=== PATIENT | male | born 1990 | race Caucasian/White ===

== ENCOUNTER 2017-03-05 08:05 | Observation (INO) | payer MEDICAID ==
[~2017-03-05] VITALS: Ht 185.4 cm; Wt 106.6 kg
[~2017-03-05 08:05] MED LIST: DICY20TA66 PO; NOR5T PO; OMEP20CA5 OR; SUCR1TAB36 PO
[2017-03-05 08:38] LABS: Basophils # (auto) 0 uL; Eosinophils # (auto) 0.1 uL; Eosinophils % (auto) 0.8 % (0.0-7.0); Hematocrit 46.8 % (41.0-53.0); Hemoglobin 15.8 g/dL (13.5-17.5); Lymphocytes # (auto) 1.1 uL; Lymphocytes % (auto) 9.2 % (10.0-50.0); Mean Corpuscular Hemoglobin 30.2 pg (28.0-32.0); Mean Corpuscular Hgb Conc. 33.8 g/dL (32.0-36.0); Mean Corpuscular Volume 89.5 fL (80.0-100.0); Mean Platelet Volume 7.6 fL (7.4-10.4); Monocytes # (auto) 0.7 uL; Monocytes % (auto) 6.3 % (0.0-12.0); Neutrophils # (auto) 9.8 uL; Neutrophils % (auto) 83.7 % (37.0-80.0); Platelet Count (auto) 227 10^3/uL (140-450); White Blood Cell 11.7 10^3/uL (4.4-10.8)
[2017-03-05 09:25] LABS: BUN/Creatinine Ratio 16.3; Bilirubin, Total 0.9 mg/dL (0.2-1.0); Calcium 9.2 mg/dL (8.5-10.1); Potassium 3.9 mmol/L (3.5-5.1); Total Protein 7.6 g/dL (6.4-8.2)
[2017-03-05] MEDS ORDERED: SODIUM CHLORIDE 0.9% 1,000 ML IV ONE (09:51)
[2017-03-05] MEDS ORDERED: METOCLOPRAMIDE HCL 5MG/ml INJ 2ml VIAL IV ONE (10:00)
[2017-03-05] MEDS ORDERED: NALBUPHINE HCL 10 MG/1ml INJECTION IV ONE (10:00)
[2017-03-05 12:27] LABS: Urine Bilirubin Negative (Negative); Urine Blood Negative /uL (Negative); Urine Color Yellow (Yellow); Urine Glucose Normal (Normal); Urine Mucus FEW (None Seen); Urine Nitrite Negative (Negative); Urine RBC 11 /hpf (0 - 3); Urine Squamous Epithelial Cell FEW /hpf (<5); Urine Urobilinogen Normal (Negative)
[2017-03-05 12:28] LABS: Urine Ketone 2+ (Negative)
[2017-03-05 14:08] VITALS: BP 132/73
== END 2017-03-05 15:25 | disposition home or self-care (01) | DRG 249 ==
LOC: ER 08:05 → OVERFLOW 09:53 → ER 15:25
PROVIDERS: ADMIT Emergency Medicine; ATTEND Emergency Medicine
DX: R11.2 Nausea with vomiting, unspecified (principal); E86.0 Dehydration; R10.13 Epigastric pain
CPT/HCPCS: 36415; 80053; 81001; 83690; 83735; 84443; 85025; 96361; 96374; 96375; 99285; G0378; J2300; J2765; J7030

== ENCOUNTER 2017-08-11 19:59 | Emergency (ER) | payer MEDICAID ==
[~2017-08-11] VITALS: Ht 177.8 cm; Wt 95.3 kg
[~2017-08-11 19:59] MED LIST changes: +HYDR-4683 PO; -NOR5T PO; -OMEP20CA5 OR; +OMEP20CA74 OR
[2017-08-11] MEDS ORDERED: PROMETHAZINE HCL 25 MG/ML 1ML IV ONE (21:15)
[2017-08-12] MEDS ORDERED: SODIUM CHLORIDE 0.9% 1,000 ML IV ONE ×2 (00:28→00:30)
[2017-08-12] MEDS ORDERED: ONDANSETRON HCL 4 MG/2 ML VIAL IV ONE ×3 (00:30→04:00)
[2017-08-12] MEDS ORDERED: HYDROmorphone HCL 2 MG/ML VL IV ONE ×2 (00:30)
[2017-08-12 01:19] LABS: Basophils # (auto) 0.1 uL; Basophils % (auto) 0.5 % (0.0-2.0); Eosinophils # (auto) 0 uL; Eosinophils % (auto) 0.1 % (0.0-7.0); Hematocrit 46.2 % (41.0-53.0); Hemoglobin 15.8 g/dL (13.5-17.5); Lymphocytes % (auto) 5.3 % (10.0-50.0); Mean Corpuscular Hemoglobin 31.2 pg (28.0-32.0); Mean Corpuscular Hgb Conc. 34.2 g/dL (32.0-36.0); Mean Corpuscular Volume 91.3 fL (80.0-100.0); Mean Platelet Volume 7.8 fL (6.9-10.8); Monocytes # (auto) 0.8 uL; Monocytes % (auto) 4.2 % (0.0-12.0); Neutrophils # (auto) 16.9 uL; Neutrophils % (auto) 89.9 % (37.0-80.0); Platelet Count (auto) 217 10^3/uL (140-450); Red Cell Distribution Width 13.1 % (11.8-14.3); White Blood Cell 18.8 10^3/uL (4.4-10.8)
[2017-08-12 01:25] LABS: INR 1.03 (0.9-1.15); Partial Thromboplastin Time 24.3 sec (22.64-33.71); Prothrombin Time 11.2 sec (9.37-12.3)
[2017-08-12 01:29] LABS: Albumin 3.8 g/dL (3.4-5.0); BUN/Creatinine Ratio 15.2; Calcium 8.6 mg/dL (8.5-10.1); Potassium 3.8 mmol/L (3.5-5.1)
[2017-08-12 01:31] LABS: Lactic Acid w/Reflex 2.6 mmol/L (0.4-2.0)
[2017-08-12 01:32] LABS: Bilirubin, Total 1.7 mg/dL (0.2-1.0); Total Protein 7.2 g/dL (6.4-8.2)
[2017-08-12 02:04] LABS: REFLEX LACTIC ACID YES OR NO YES
[2017-08-12] MEDS ORDERED: cefTRIAXone 1GM/50ML D5W 50 ML IV ONE (03:30)
[2017-08-12 05:27] VITALS: BP 126/82
== END 2017-08-12 06:26 | disposition home or self-care (01) ==
LOC: EDBD 19:59 → EDSEX 19:59 → ER 20:09
DX: K52.9 Noninfective gastroenteritis and colitis, unspecified (principal); D72.829 Elevated white blood cell count, unspecified; F17.210 Nicotine dependence, cigarettes, uncomplicated; Z87.442 Personal history of urinary calculi
CPT/HCPCS: 36415; 74176; 80053; 83605; 83690; 85025; 85610; 85730; 96361; 96365; 96375; 96376; 99285; J0696; J1170; J2405; J2550; J7030

== ENCOUNTER 2017-10-26 15:37 | Emergency (ER) | payer MEDICAID ==
[~2017-10-26] VITALS: Ht 185.4 cm; Wt 108.9 kg
[~2017-10-26 15:37] MED LIST changes: -HYDR-4683 PO
[2017-10-26] MEDS ORDERED: METOCLOPRAMIDE HCL 5MG/ml INJ 2ml VIAL ONE (15:50)
[2017-10-26] MEDS ORDERED: KETOROLAC TROMETH 30 MG/ML 1ML VIAL ONE (15:50)
[2017-10-26] MEDS ORDERED: KETOROLAC TROMETH 30 MG/ML 1ML VIAL IV ONE (16:00)
[2017-10-26] MEDS ORDERED: METOCLOPRAMIDE HCL 5MG/ml INJ 2ml VIAL IV ONE (16:00)
[2017-10-26] MEDS ORDERED: SODIUM CHLORIDE 0.9% 1,000 ML IVB ONE (16:37)
[2017-10-26 16:58] LABS: Basophils # (auto) 0 uL; Basophils % (auto) 0.5 % (0.0-2.0); Eosinophils # (auto) 0 uL; Eosinophils % (auto) 0.4 % (0.0-7.0); Hemoglobin 15.3 g/dL (13.5-17.5); Lymphocytes # (auto) 0.9 uL; Lymphocytes % (auto) 11.1 % (10.0-50.0); Mean Corpuscular Hgb Conc. 34.1 g/dL (32.0-36.0); Mean Platelet Volume 7.4 fL (6.9-10.8); Monocytes # (auto) 0.8 uL; Monocytes % (auto) 9.3 % (0.0-12.0); Neutrophils # (auto) 6.7 uL; Neutrophils % (auto) 78.7 % (37.0-80.0); Platelet Count (auto) 258 10^3/uL (140-450); Red Cell Distribution Width 13.2 % (11.8-14.3); White Blood Cell 8.5 10^3/uL (4.4-10.8)
[2017-10-26] MEDS ORDERED: NALBUPHINE HCL 10 MG/1ml INJECTION IV ONE (17:00)
[2017-10-26] MEDS ORDERED: PROMETHAZINE HCL 25 MG/ML 1ML IV ONE (17:00)
[2017-10-26 18:00] LABS: Potassium 3.4 mmol/L (3.5-5.1)
[2017-10-26 18:04] LABS: BUN/Creatinine Ratio 15.1; Calcium 8.8 mg/dL (8.5-10.1)
[2017-10-26 18:05] LABS: Albumin 3.6 g/dL (3.4-5.0); Magnesium 1.7 mg/dL (1.6-2.6); Total Protein 7.4 g/dL (6.4-8.2)
[2017-10-26 18:30] VITALS: BP 134/76
[2017-10-26] MEDS ORDERED: POTASSIUM CHL 10% (20 MEQ/15ML) 15ml ORAL SOLN PO ONE (18:30)
[2017-10-26 19:03] LABS: Urine Blood TRACE /uL (Negative); Urine Color Yellow (Yellow); Urine Glucose Normal (Normal); Urine Ketone 4+ (Negative); Urine Mucus MANY (None Seen); Urine Nitrite Negative (Negative); Urine RBC 1 /hpf (0 - 3)
[2017-10-26 19:11] LABS: Urine Bilirubin POSITIVE (Negative)
[2017-10-26] MEDS ORDERED: ONDANSETRON HCL 4 MG/2 ML VIAL ONE (19:38)
[2017-10-26] MEDS ORDERED: ONDANSETRON HCL 4 MG/2 ML VIAL IV ONE (19:45)
== END 2017-10-27 07:26 | disposition home or self-care (01) ==
LOC: EDUNIT# 15:37 → EDBD 15:37 → ER 15:37
DX: N23 Unspecified renal colic (principal); R11.2 Nausea with vomiting, unspecified; G89.29 Other chronic pain; M54.5 Low back pain; F17.210 Nicotine dependence, cigarettes, uncomplicated; Z87.11 Personal history of peptic ulcer disease; Z87.442 Personal history of urinary calculi; Z88.6 Allergy status to analgesic agent
CPT/HCPCS: 36415; 74176; 80053; 81001; 83690; 83735; 85025; 96361; 96374; 96375; 99285; J1885; J2300; J2405; J2550; J2765; J7030

== ENCOUNTER 2017-10-27 19:18 | Emergency (ER) | payer MEDICAID ==
[~2017-10-27] VITALS: Ht 182.9 cm; Wt 104.3 kg
[2017-10-27 19:24] VITALS: BP 135/85
== END 2017-10-28 00:46 | disposition left against medical advice (07) ==
LOC: EDBD 19:18 → ER 19:24
DX: F41.9 Anxiety disorder, unspecified (principal); Z53.21 Procedure and treatment not carried out due to patient leaving prior to being seen by health care provider

== ENCOUNTER 2018-07-25 10:11 | Inpatient (IN) | payer MEDICAID ==
[~2018-07-25] VITALS: Ht 185.4 cm; Wt 108.0 kg
[2018-07-25 13:22] LABS: Basophils # (auto) 0 uL; Eosinophils # (auto) 0 uL; Eosinophils % (auto) 0.2 % (0.0-7.0); Mean Corpuscular Hgb Conc. 34.3 g/dL (32.0-36.0); Monocytes # (auto) 1.4 uL; Neutrophils # (auto) 9.7 uL; Nucleated Red Blood Cells % 0.1 %
[2018-07-25 13:25] LABS: Basophils % (auto) 0.3 % (0.0-2.0); Hematocrit 51.6 % (41.0-53.0); Hemoglobin 17.7 g/dL (13.5-17.5); Lymphocytes # (auto) 1.6 uL; Lymphocytes % (auto) 12.6 % (10.0-50.0); Mean Corpuscular Hemoglobin 31.1 pg (28.0-32.0); Mean Corpuscular Volume 90.7 fL (80.0-100.0); Monocytes % (auto) 10.9 % (0.0-12.0); Platelet Count (auto) 264 10^3/uL (140-450); Red Blood Cells 5.69 10^6/uL (4.5-5.90); Red Cell Distribution Width 13.5 % (11.8-14.3); White Blood Cell 12.8 10^3/uL (4.4-10.8)
[2018-07-25 13:39] LABS: Partial Thromboplastin Time 28.5 sec (23.78-33.04); Prothrombin Time 10.7 sec (9.27-12.13)
[2018-07-25 13:45] LABS: Albumin 4.3 g/dL (3.4-5.0); BUN/Creatinine Ratio 18.6; Bilirubin, Total 1.8 mg/dL (0.2-1.0); Calcium 9.8 mg/dL (8.5-10.1); Potassium 3.4 mmol/L (3.5-5.1); Total Protein 8.6 g/dL (6.4-8.2)
[2018-07-25] MEDS ORDERED: PANTOPRAZOLE 40 MG TAB PO ONE (13:45)
[2018-07-25] MEDS ORDERED: POTASSIUM EFFERVESENT TAB 25 MEQ PO ONE (14:30)
[2018-07-25 14:33] LABS: Urine WBC None Seen /hpf (0 - 3)
[2018-07-25 14:53] LABS: Urine Bacteria NONE SEEN /hpf (None Seen); Urine Blood Negative /uL (Negative); Urine Mucus MANY (None Seen); Urine Specific Gravity 1.028 (1.001-1.035)
[2018-07-25] MEDS ORDERED: LIDOCAINE VISCOUS 2% 15ML UD PO ONE (15:00)
[2018-07-25] MEDS ORDERED: DONNATAL 5ml ORAL Elix (BELLADONNA ALK-PHENOBARB) PO ONE (15:00)
[2018-07-25] MEDS ORDERED: ALUM & MAG HYDROX-SIMETH LIQ(MAALOX) 30 ML PO ONE (15:00)
[2018-07-25] MEDS ORDERED: SODIUM CHLORIDE 0.9% 1,000 ML IV ONE ×2 (15:20)
[2018-07-25] MEDS ORDERED: ONDANSETRON HCL 4 MG/2 ML VIAL IV PRN ×2 (15:30→22:45)
[2018-07-25] MEDS ORDERED: PANTOPRAZOLE 40 MG/10 ML VIAL IV ONE (15:30)
[2018-07-25] MEDS ORDERED: METOCLOPRAMIDE HCL 5MG/ml INJ 2ml VIAL ONE (16:25)
[2018-07-25] MEDS ORDERED: PROMETHAZINE HCL 25 MG/ML 1ML IV ONE (16:30)
[2018-07-25] MEDS ORDERED: METOCLOPRAMIDE HCL 5MG/ml INJ 2ml VIAL IV PRN (16:45)
[2018-07-25] MEDS: SOD CHL 0.9%/ KCL 20MEQ 1,000 ML IV SCH (17:06)
[2018-07-25] MEDS: NALBUPHINE HCL 10 MG/1ml INJECTION IV PRN ×2 (17:19→23:27)
[2018-07-25] MEDS ORDERED: HYDR-4683 PO (20:46)
[2018-07-25] MEDS ORDERED: PANT40TA2 PO (20:46)
[2018-07-25 21:32] LABS: Alcohol, Urine < 3.0 mg/dL (0-5); Amphetamine Screen, Urine NEGATIVE (NEGATIVE); Barbiturate Scree,Urine NEGATIVE (NEGATIVE); Benzodiazephine Screen, Urine NEGATIVE (NEGATIVE); Cannabinoid Screen, Urine POSITIVE (NEGATIVE); Cocaine Screen, Urine NEGATIVE (NEGATIVE); Opiate Scree,Urine POSITIVE (NEGATIVE); Phencyclidine Screen, Urine NEGATIVE (NEGATIVE)
[2018-07-25 22:00] VITALS: BP 140/76
[2018-07-25] MEDS ORDERED: METOCLOPRAMIDE HCL 5MG/ml INJ 2ml VIAL IV SCH (22:00)
[2018-07-25] MEDS ORDERED: TEMAZEPAM 15 MG CAP PO ONE (22:15)
[2018-07-25 22:41] VITALS: BP 156/86
[2018-07-25] MEDS: PROMETHAZINE HCL 25 MG/ML 1ML IV PRN (23:27)
[2018-07-26] MEDS: SOD CHL 0.9%/ KCL 20MEQ 1,000 ML IV SCH ×3 (04:00→22:40)
[2018-07-26 04:55] VITALS: BP 147/82
[2018-07-26] MEDS: NALBUPHINE HCL 10 MG/1ml INJECTION IV PRN ×3 (05:26→20:04)
[2018-07-26] MEDS: PROMETHAZINE HCL 25 MG/ML 1ML IV PRN (05:35)
[2018-07-26 05:58] LABS: Basophils # (auto) 0 uL; Basophils % (auto) 0.3 % (0.0-2.0); Eosinophils # (auto) 0.1 uL; Eosinophils % (auto) 0.8 % (0.0-7.0); Hematocrit 43.1 % (41.0-53.0); Hemoglobin 15.2 g/dL (13.5-17.5); Lymphocytes # (auto) 2.1 uL; Lymphocytes % (auto) 25.1 % (10.0-50.0); Mean Corpuscular Hemoglobin 31.6 pg (28.0-32.0); Mean Corpuscular Hgb Conc. 35.2 g/dL (32.0-36.0); Mean Corpuscular Volume 89.8 fL (80.0-100.0); Monocytes % (auto) 11.7 % (0.0-12.0); Neutrophils # (auto) 5.2 uL; Neutrophils % (auto) 62.1 % (37.0-80.0); Platelet Count (auto) 197 10^3/uL (140-450); Red Cell Distribution Width 13.5 % (11.8-14.3); White Blood Cell 8.4 10^3/uL (4.4-10.8)
[2018-07-26 06:27] LABS: Potassium 3.4 mmol/L (3.5-5.1)
[2018-07-26 06:32] LABS: BUN/Creatinine Ratio 20.3; Calcium 8.2 mg/dL (8.5-10.1)
[2018-07-26 08:00] VITALS: BP 139/85
[2018-07-26] MEDS ORDERED: PANTOPRAZOLE 40 MG/10 ML VIAL IV SCH ×2 (10:00→22:00)
[2018-07-26 12:00] VITALS: BP 137/85
[2018-07-26] MEDS ORDERED: POTASSIUM CHL 20 Meq TABLET PO ONE (12:00)
[2018-07-26] MEDS: METOCLOPRAMIDE HCL 5MG/ml INJ 2ml VIAL IV PRN ×2 (12:48→20:04)
[2018-07-26] MEDS ORDERED: GOLYTELY 4L KIT PO ONE (14:45)
[2018-07-26 16:00] VITALS: BP 139/85
[2018-07-26] MEDS: HYDROcodone-ACET 5/325MG TAB PO PRN ×2 (16:16→22:41)
[2018-07-26 22:00] VITALS: BP 135/87
[2018-07-27] MEDS: METOCLOPRAMIDE HCL 5MG/ml INJ 2ml VIAL IV PRN ×2 (02:04→13:15)
[2018-07-27] MEDS: NALBUPHINE HCL 10 MG/1ml INJECTION IV PRN (03:12)
[2018-07-27 05:25] VITALS: BP 142/81
[2018-07-27] MEDS ORDERED: GOLYTELY 4L KIT PO ONE (06:00)
[2018-07-27 06:35] LABS: Basophils # (auto) 0 uL; Basophils % (auto) 0.7 % (0.0-2.0); Eosinophils # (auto) 0.2 uL; Eosinophils % (auto) 2.3 % (0.0-7.0); Hematocrit 41.8 % (41.0-53.0); Hemoglobin 14.5 g/dL (13.5-17.5); Lymphocytes # (auto) 2.2 uL; Lymphocytes % (auto) 31.9 % (10.0-50.0); Mean Corpuscular Hemoglobin 31.6 pg (28.0-32.0); Mean Corpuscular Hgb Conc. 34.8 g/dL (32.0-36.0); Mean Corpuscular Volume 90.9 fL (80.0-100.0); Monocytes # (auto) 0.8 uL; Neutrophils # (auto) 3.7 uL; Neutrophils % (auto) 54.1 % (37.0-80.0); Nucleated Red Blood Cells % 0.1 %; Platelet Count (auto) 185 10^3/uL (140-450); Red Blood Cells 4.59 10^6/uL (4.5-5.90); Red Cell Distribution Width 13.3 % (11.8-14.3); White Blood Cell 6.8 10^3/uL (4.4-10.8)
[2018-07-27 06:46] LABS: BUN/Creatinine Ratio 14.1; Calcium 8.1 mg/dL (8.5-10.1)
[2018-07-27] MEDS: SOD CHL 0.9%/ KCL 20MEQ 1,000 ML IV SCH (07:38)
[2018-07-27 08:00] VITALS: BP 138/81
[2018-07-27] MEDS ORDERED: NALOXONE HCL 0.4 MG/ML VIAL ONE (08:23)
[2018-07-27] MEDS ORDERED: FLUMAZENIL 0.1 MG/ML INJ 10ML MDV IV ONE (08:23)
[2018-07-27] MEDS ORDERED: SODIUM CHLORIDE LOCK 10 ML ONE (08:23)
[2018-07-27] MEDS ORDERED: LIDOCAINE VISCOUS 2% 15ML UD ONE (08:23)
[2018-07-27 08:57] VITALS: BP 138/81
[2018-07-27] MEDS: fentaNYL CITRATE 100 MCG/2 ML VL ONE ×5 (09:09→09:24)
[2018-07-27] MEDS: MIDAZOLAM HCL 5 MG/ML-1ML VIAL ONE ×5 (09:09→09:24)
[2018-07-27] MEDS ORDERED: diphenhdrAMINE HCL 50 MG/1 ML VL ONE (09:13)
[2018-07-27] MEDS ORDERED: PANTOPRAZOLE 40 MG TAB PO SCH (10:00)
[2018-07-27 12:20] VITALS: BP 133/77
[2018-07-27] MEDS: HYDROcodone-ACET 5/325MG TAB PO PRN (13:29)
[2018-07-27 14:04] VITALS: BP 133/77
== END 2018-07-27 15:50 | disposition home or self-care (01) | DRG 243 ==
LOC: ER 10:11 → OVERFLOW 10:12 → CENTRAL 20:07
PROVIDERS: ADMIT Internal Medicine; ATTEND Internal Medicine
PROC: 0DB68ZX Excision of Stomach, Via Natural or Artificial Opening Endoscopic, Diagnostic (ICD-10-PCS; principal; 2018-07-27 09:05)
PROC: 0DJD8ZZ Inspection of Lower Intestinal Tract, Via Natural or Artificial Opening Endoscopic (ICD-10-PCS; 2018-07-27 09:05)
DX: K20.9 Esophagitis, unspecified (principal); K29.71 Gastritis, unspecified, with bleeding; K29.81 Duodenitis with bleeding; F17.210 Nicotine dependence, cigarettes, uncomplicated; Z82.3 Family history of stroke; Z83.3 Family history of diabetes mellitus; Z87.11 Personal history of peptic ulcer disease; Z87.442 Personal history of urinary calculi; Z88.8 Allergy status to other drugs, medicaments and biological substances
CPT/HCPCS: 36415; 43239; 45378; 74176; 80048; 80053; 80307; 81001; 82150; 83690; 85025; 85610; 85730; 96361; 96374; A6257; C9113; J2250

== ENCOUNTER 2018-11-09 13:11 | Emergency (ER) | payer MEDICAID ==
[~2018-11-09] VITALS: Ht 180.3 cm; Wt 81.6 kg
[~2018-11-09 13:11] MED LIST changes: +HYDR-4683 PO; +PANT40TA2 PO
[2018-11-09] MEDS ORDERED: PANTOPRAZOLE 40 MG/10 ML VIAL IV STA (14:10)
[2018-11-09] MEDS ORDERED: SODIUM CHLORIDE 0.9% 1,000 ML IVB ONE (14:10)
[2018-11-09] MEDS ORDERED: PROCHLORPERAZINE EDISYLATE 5 MG/ML 2ML VIAL IV ONE (14:15)
[2018-11-09] MEDS ORDERED: MORPHINE SULFATE 4 MG/ML SYR/VIAL IV ONE (14:15)
[2018-11-09 14:44] LABS: Eosinophils # (auto) 0 uL; Monocytes # (auto) 1.9 uL; Red Cell Distribution Width 12.9 % (11.8-14.3)
[2018-11-09 14:46] LABS: Basophils # (auto) 0.1 uL; Basophils % (auto) 0.3 % (0.0-2.0); Hematocrit 53.1 % (41.0-53.0); Hemoglobin 18.6 g/dL (13.5-17.5); Lymphocytes # (auto) 1.5 uL; Lymphocytes % (auto) 8.3 % (10.0-50.0); Mean Corpuscular Hemoglobin 31.5 pg (28.0-32.0); Mean Corpuscular Volume 90.1 fL (80.0-100.0); Monocytes % (auto) 10.4 % (0.0-12.0); Neutrophils # (auto) 14.6 uL; Platelet Count (auto) 274 10^3/uL (140-450); Red Blood Cells 5.89 10^6/uL (4.5-5.90); White Blood Cell 18.1 10^3/uL (4.4-10.8)
[2018-11-09 15:05] LABS: Albumin 4.5 g/dL (3.4-5.0); Calcium 9.3 mg/dL (8.5-10.1)
[2018-11-09 15:08] LABS: BUN/Creatinine Ratio 21.9; Bilirubin, Total 2.1 mg/dL (0.2-1.0); Total Protein 8.4 g/dL (6.4-8.2)
[2018-11-09 15:21] LABS: Potassium 2.6 mmol/L (3.5-5.1)
[2018-11-09] MEDS ORDERED: POTASSIUM CHL 20MEQ/100ML 100 ML IV ONE (16:15)
[2018-11-09] MEDS ORDERED: ALUM & MAG HYDROX-SIMETH LIQ(MAALOX) 30 ML PO ONE (17:00)
[2018-11-09 21:05] LABS: Urine Bacteria NONE SEEN /hpf (None Seen); Urine Blood 1+ /uL (Negative); Urine Hyaline Cast FEW /lpf (0 - 2); Urine Mucus FEW (None Seen); Urine Specific Gravity 1.022 (1.001-1.035); Urine WBC 2 /hpf (0 - 3)
[2018-11-09 21:13] LABS: Alcohol, Urine < 3.0 mg/dL (0-5); Amphetamine Screen, Urine NEGATIVE (NEGATIVE); Barbiturate Scree,Urine NEGATIVE (NEGATIVE); Benzodiazephine Screen, Urine NEGATIVE (NEGATIVE); Cannabinoid Screen, Urine POSITIVE (NEGATIVE); Cocaine Screen, Urine NEGATIVE (NEGATIVE); Opiate Scree,Urine NEGATIVE (NEGATIVE); Phencyclidine Screen, Urine NEGATIVE (NEGATIVE)
[2018-11-09] MEDS ORDERED: LORazepam 2MG/ML-1ML VIAL IV ONE (21:45)
[2018-11-09 23:14] VITALS: BP 122/73
== END 2018-11-09 23:16 | disposition home or self-care (01) ==
LOC: EDBD 13:11 → ER 13:17
DX: E87.6 Hypokalemia (principal); F17.210 Nicotine dependence, cigarettes, uncomplicated; F12.10 Cannabis abuse, uncomplicated; Z87.11 Personal history of peptic ulcer disease; Z87.442 Personal history of urinary calculi
CPT/HCPCS: 36415; 80053; 80307; 81001; 82150; 83690; 85025; 94761; 96361; 96365; 96366; 96375; 99283; C9113; J0780; J2060; J2270; J3480; J7030

== ENCOUNTER 2020-05-30 01:02 | Emergency (ER) | payer SELFPAY ==
[~2020-05-30] VITALS: Ht 188 cm; Wt 113.4 kg
[~2020-05-30 01:02] MED LIST changes: +DICY20TA PO; -DICY20TA66 PO; -HYDR-4683 PO; +HYDR-4833 PO
[2020-05-30 02:03] VITALS: BP 108/80
[2020-05-30] MEDS ORDERED: TETANUS-DIPTH-ACEL PERTUSSIS 0.5ML SYR Tdap IM ONE (04:00)
[2020-05-30] MEDS ORDERED: KETOROLAC TROMETH 60MG/2ML VIAL IM ONE (04:00)
== END 2020-05-30 04:14 | disposition home or self-care (01) ==
LOC: ER 01:04
DX: S51.852A Open bite of left forearm, initial encounter (principal); W54.0XXA Bitten by dog, initial encounter; Y93.89 Activity, other specified; Y92.89 Other specified places as the place of occurrence of the external cause; Y99.8 Other external cause status
CPT/HCPCS: 73030; 73090; 73100; 90471; 90715; 96372; 99284; J1885